=== PATIENT | female | born 2000 | race Caucasian/White ===

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

== ENCOUNTER 2023-07-17 08:37 | Emergency (ER) | payer MEDICAID, SELFPAY ==
[2023-07-17 08:41] VITALS: BP 123/85; PULSE 108; RESP 18; TEMP 37.1; O2SAT 100; BMI 26.5
[2023-07-17 09:07] LABS: Basophils % 0.2 %; Eosinophils # 0.3 10^3/uL (0.0-0.8); Eosinophils % 3.5 %; Hematocrit 44.3 % (36-47); Lymphocytes # 2.2 10^3/uL (0.8-4.8); Lymphocytes % 23.6 %; Mean Corpuscular HGB Conc 33.4 g/dL (30-55); Mean Corpuscular Hemoglobin 28.7 pg (27-33); Mean Platelet Volume 10.2 fL (7.4-10.4); Monocytes # 0.4 10^3/uL (0.2-0.9); Monocytes % 4.7 %; Neutrophils # 6.18 10^3/uL (1.8-7.7); Neutrophils % 67.7 %; Nucleated Red Blood Cells % 0 %; Platelet Count 368 10^3/cmm (157-399); Red Blood Count 5.15 10^6/uL (3.85-5.65); Red Cell Distribution Width 13.6 % (12.1-15.1); White Blood Count 9.14 10^3/uL (3.29-11.43)
[2023-07-17 09:08] VITALS: RESP 18
[2023-07-17] MEDS: sodium chloride 0.9% 1,000 ML 999 ML IV (09:08)
[2023-07-17 09:29] LABS: Alanine Aminotransferase 16 U/L (0-33); Albumin Level 4.3 g/dL (3.5-5.2); Alkaline Phosphatase 78 U/L (35-105); Anion Gap 18.5 (5-19); Aspartate Amino Transferase 13 U/L (0-32); Blood Urea Nitrogen 7 mg/dL (6-20); Calcium 9.6 mg/dL (8.5-10.5); Carbon Dioxide 22 mmol/L (22-29); Chloride 103 mmol/L (98-107); Creatinine Clr Calc Pharmacy 103.0037; Glomerular Filtration Rate 90.5 mL/min (90-130); Glucose 111 mg/dL (65-115); Osmolality Calculated 289 mOsm/kg (285-295); Potassium 3.5 mmol/L (3.5-5.1); Sodium 140 mmol/L (136-145); Total Bilirubin 0.4 mg/dL (0.15-1.2); Total Protein 8.3 g/dL (6.6-8.7)
--- NOTE | 2023-07-17 09:31 | ED_ITS ---
HPI - Nausea/Vomiting/Diarrhea 2 General: Chief complaint: Nausea/Vomiting/Diarrhea Stated complaint: diarrhea for 4 weeks, fever, n/v Time Seen by Provider: 07/17/23 08:54 Source: patient Mode of arrival: ambulatory History of Present Illness: 23-year-old female presents emergency ro om complaining of 3 weeks of diarrhea. Beginning of this month she was on a course of oral antibiotics for UTI she also had a lot of diarrhea at this time. She mentioned that she had some rectal prolapse she seen her primary care doctor they are able to reduce. She feels like she is continue to have excessive diarrhea. Reviewing her chart it looks like she was on Bactrim DS for her bladder infection. MD elicited complaint: nausea, vomiting and diarrhea Onset (ago): week(s) (4) Associated symtoms: Denies chest pain or dysuria Review of Systems 2 Const: Denies: fever(s) or chills Card: Denies: chest pain Resp: Denies: dyspnea GI: Denies: abdominal pain : Denies: dysuria, urinary frequency or urinary urgency Musc: Denies: neck pain or back pain Skin/Breast: Denies: rash PFSH ED 2 PFSH: Medical History Abscess of left breast associated with No pertinent past medical history Denies diabetes, asthma, hypertension, seizures, DVT/PE PCP: SEAN Mora Surgical History No significant past surgical history Family History Father Uvbfppi-Lqdub-Jmrxb disease Grandmother Breast cancer maternal, diagnosed in her 50s Stroke maternal Family/Other Breast cancer maternal aunt, diagnosed in her 30s or 40s Diabetes maternal unlce Heart disease maternal aunt Mother Hypertension Thyroid disease Denies family history of Colon cancer Ovarian cancer Hyperlipidemia Uterine cancer Social History Smoking and tobacco/nicotine status: current every day tobacco/nicotine user Substance/Drug Use: current Physical Exam 2 Const: GENERAL APPEARANCE: cooperative ORIENTATION/CONSCIOUSNESS: Yes awake, Yes oriented to person, Yes oriented to place and Yes oriented to time HENMT: COMMON NORMALS: normocephalic, atraumatic and hearing grossly normal bilaterally HEAD & SCALP: normocephalic and atraumatic Resp: COMMON NORMALS: normal respiratory effort, No retractions, No use of accessory muscles and clear to auscultation bilaterally AUSCULTATION: clear to auscultation bilaterally Cardio: COMMON NORMALS: regular rate, regular rhythm and No murmurs present (Cardio) RATE: regular rate RHYTHM: regular rhythm GI: COMMON NORMALS: No hepatosplenomegaly present AUSCULTATION: Yes normoactive bowel sounds PALPATION: Yes Tenderness to palpation present (GI) (Generalized nonspecific), No Guarding due to palpation present (GI) and Yes No hepatosplenomegaly present Extremity: COMMON NORMALS: normal to inspection, capillary refill normal, no clubbing, cyanosis or edema, no calf tenderness and no pedal edema Neuro: SENSORIUM/ORIENTATION: Yes oriented to person, Yes oriented to place and Yes oriented to time Skin: COMMON NORMALS: no rashes or lesions noted GENERAL SKIN EXAM: no rashes or lesions noted Course 2 Vital Signs: Vital signs: Vital Signs Temperature 98.8 F 07/17/23 08:41 Pulse Rate 85 07/17/23 10:20 Respiratory Rate 18 07/17/23 09:08 Blood Pressure 130/97 07/17/23 10:45 Pulse Oximetry 97 07/17/23 10:20 Oxygen Delivery Me thod Room Air 07/17/23 08:41 MDM - Nausea/Vomiting/Diarrhea Medical Decision Making CT shows colitis. Discharge home liquid diet antiemetics Cipro and Flagyl. She also describes having has episodes of rectal prolapse is not prolapsing now. Recommend she follow-up with her primary care doctor for consideration of further evaluation including possible endoscopy referral to GI or colorectal surgery regarding the prolapse Medical Records I reviewed the patient's medical records. Lab Data I reviewed the patient's lab results. 07/17/23 09:00 07/17/23 09:00 Radiology Impressions Abdomen/Pelvis CT 07/17/23 09:38 IMPRESSION: 1. No hydronephrosis in either kidney. No obstructing renal or ureteral calculi. 2. Mild induration about the transverse colon and proximal descending LEFT colon can be seen with mild infectious or inflammatory colitis. Normal sigmoid colon. 3. Prominent lymph nodes in the central mesentery and RIGHT lower quadrant likely reactive and can be seen with mesenteric adenitis. 4. Normal appendix. No evidence of acute appendicitis. 5. Vaginal ring at the cervix. 6. No other acute findings. Notified Brandyn Hussein DO at 07/17/2023 10:23 AM. Laboratory Results WBC 9.14 10^3/uL (3.29-11.43) 07/17/23 09:00 RBC 5.15 10^6/uL (3.85-5.65) 07/17/23 09:00 Hgb 14.80 g/dL (11.27-16.99) 07/17/23 09:00 Hct 44.3 % (36-47) 07/17/23 09:00 MCV 86.0 fl (85-98) 07/17/23 09:00 MCH 28.7 pg (27-33) 07/17/23 09:00 MCHC 33.4 g/dL (30-55) 07/17/23 09:00 RDW 13.6 % (12.1-15.1) 07/17/23 09:00 Plt Count 368 10^3/cmm (157-399) 07/17/23 09:00 MPV 10.2 fL (7.4-10.4) 07/17/23 09:00 Neut % (Auto) 67.7 % 07/17/23 09:00 Lymph % (Auto) 23.6 % 07/17/23 09:00 [place] % (Auto) 4.7 % 07/17/23 09:00 Eos % (Auto) 3.5 % 07/17/23 09:00 Baso % (Auto) 0.2 % 07/17/23 09:00 Neut # (Auto) 6.18 10^3/uL (1.8-7.7) 07/17/23 09:00 Lymph # (Auto) 2.2 10^3/uL (0.8-4.8) 07/17/23 09:00 [place] # (Auto) 0.4 10^3/uL (0.2-0.9) 07/17/23 09:00 Eos # (Auto) 0.3 10^3/uL (0.0-0.8) 07/17/23 09:00 Baso # (Auto) 0.0 10^3/uL (0.0-0.1) 07/17/23 09:00 Nucleated RBC % (auto) 0 % 07/17/23 09:00 Nucleated RBCs # 0.0 /100WBC 07/17/23 09:00 Sodium 140 mmol/L (136-145) 07/17/23 09:00 Potassium 3.5 mmol/L (3.5-5.1) 07/17/23 09:00 Chloride 103 mmol/L (98-107) 07/17/23 09:00 Carbon Dioxide 22 mmol/L (22-29) 07/17/23 09:00 Anion Gap 18.5 (5-19) 07/17/23 09:00 BUN 7 mg/dL (6-20) 07/17/23 09:00 Creatinine 0.8 mg/dL (0.5-0.9) 07/17/23 09:00 GFR Calculation 90.5 mL/min (90-130) 07/17/23 09:00 Glucose 111 mg/dL (65-115) 07/17/23 09:00 Calculated Osmolality 289 mOsm/kg (285-295) 07/17/23 09:00 Lactic Acid 1.2 mmol/L (0.5-2.2) 07/17/23 09:00 Calcium 9.6 mg/dL (8.5-10.5) 07/17/23 09:00 Total Bilirubin 0.4 mg/dL (0.15-1.2) 07/17/23 09:00 AST 13 U/L (0-32) 07/17/23 09:00 ALT 16 U/L (0-33) 07/17/23 09:00 Alkaline Phosphatase 78 U/L (35-105) 07/17/23 09:00 Total Protein 8.3 g/dL (6.6-8.7) 07/17/23 09:00 Albumin 4.3 g/dL (3.5-5.2) 07/17/23 09:00 Globulin 4.0 g/dL (1.3-4.6) 07/17/23 09:00 Lipase 29 U/L (13-60) 07/17/23 09:00 HCG, Qual Negative (Negative) 07/17/23 09:00 Urine Color Light yellow (Yellow) 07/17/23 10:15 Urine Appearance Clear (CLEAR) 07/17/23 10:15 Urine pH 6 (5-7) 07/17/23 10:15 Ur Specific [place] 1.005 (1.005-1.030) 07/17/23 10:15 Urine Protein Neg (Negative) 07/17/23 10:15 Urine Glucose (UA) Norm (Normal) 07/17/23 10:15 Urine Ketones 1+ (Negative) H 07/17/23 10:15 Urine Blood Neg (Negative) 07/17/23 10:15 Urine Nitrate Negative (Negative) 07/17/23 10:15 Urine Bilirubin Neg (Negative) 07/17/23 10:15 Urine Urobilinogen Norm mg/dL (Negative) 07/17/23 10:15 Ur Leukocyte Esterase Negative (Negative) 07/17/23 10:15 All radiology interpretation(s) finalized by discharge Discharge Plan Discharge Patient Disposition: Home Clinical Impression: Colitis, Rectal prolapse Condition: Stable Prescriptions: New Cipro 500 mg tablet 500 mg PO BID Qty: 14 0RF metronidazole 500 mg tablet 500 mg PO BID 7 Days Qty: 14 0RF promethazine 25 mg tablet 25 mg PO Q6H PRN (Reason: nausea and vomiting) Qty: 20 0RF No Action EluRyng 0.12-0.015 mg/24 hr Ring 1 vag ring VAGINAL Q23D Discharge Orders: Discharge ED (Routine); Ordered 07/17/23 Ordered By: Brandyn Hussein Referrals: Micaela Downs PA [Primary Care Provider] - Discharge Diet: Full LIquid Discharge Activity: Increase activity as tolerated Patient Instructions: Colitis (ED), Opioid Safety, Pain Management Activity Restrictions/Additional Instructions: Thank you for choosing [facility] for your healthcare needs today. Please realize this is an emergency room and that we are providing you with a medical screening exam and this may not be complete and all inclusive of all the testing and or work up that you may need to determine your ailment or severity of your illness. It is very important that you follow up as instructed or that you return to the Emergency Department should you have concerns or if your condition changes or worsens in any way. Follow-up with your primary care doctor within the next 10 to 14 days. Recommend you stay on a full liquid diet for the next few days. You should take some simple carbohydrates such as bread or crackers etc. with the oral antibiotics. In the next few weeks you should follow-up with your primary care doctor regarding the episodes of rectal prolapse you had as well as this episode of colitis for consideration of referral. 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
[2023-07-17 09:32] LABS: HCG, Serum Qual Negative (Negative)
--- NOTE | 2023-07-17 09:38 | CT_ITS ---
WS: [id number] CT ABDOMEN PELVIS TECHNIQUE: Noncontrast CT of the abdomen and pelvis with coronal and sagittal reformatted images. CLINICAL INFORMATION: Abdominal pain COMPARISON: CT 08/13/2020 DLP: 421.[address] scans at [facility] use at least one of these dose optimization techniques: automated e xposure control; mA and/or kV adjustment per patient size (includes targeted exams where dose is matc hed to clinical indication); or iterative reconstruction. FINDINGS: Adrenal glands are normal. No hydronephrosis in either kidney. No obstructing renal or ureteral calcu li. No inflammatory stranding about either kidney. Mild induration and thickening involving the mid to distal transverse colon and proximal descending L EFT colon suspicious for mild infectious or inflammatory colitis. Normal sigmoid colon. Lung bases are well aerated. Noncontrast liver and spleen are normal. Normal GE junction. Normal nonc ontrast gallbladder. Noncontrast pancreas is normal. Normal caliber abdominal aorta. Tiny fat-contain ing umbilical hernia. Normal Multi follicular ovaries bilaterally. . Normal appendix in the RIGHT lower quadrant. No eviden ce of acute appendicitis. Normal lumbar spine. Mild lumbar curve. Few prominent lymph nodes in the ce ntral mesentery and RIGHT lower quadrant can be seen with mesenteric adenitis. Vaginal ring CT/[place] abdomen [place] con [id number] IMPRESSION: 1. No hydronephrosis in either kidney. No obstructing renal or ureteral calcul i. 2. Mild induration about the transverse colon and proximal descending LEFT col on can be seen with mild infectious or inflammatory colitis. Normal sigmoid col on. 3. Prominent lymph nodes in the central mesentery and RIGHT lower quadrant lik elsy reactive and can be seen with mesenteric adenitis. 4. Normal appendix. No evidence of acute appendicitis. 5. Vaginal ring at the cervix. 6. No other acute findings. Notified Brandyn Hussein DO at 07/17/2023 10:23 AM.
[2023-07-17 09:54] LABS: Lipase 29 U/L (13-60)
[2023-07-17 09:56] LABS: Lactic Sepsis W/Reflex 1.2 mmol/L (0.5-2.2)
[2023-07-17 10:20] VITALS: PULSE 85; O2SAT 97
[2023-07-17 10:22] LABS: Add Urine Microscopic? NO; Charge for UA Resulting for Rev
[2023-07-17 10:25] LABS: Bilirubin Urine Neg (Negative); Blood Urine Neg (Negative); Glucose Urine UA Norm (Normal); Ketones Urine 1+ (Negative); Leukocyte Esterase Urine Negative (Negative); Nitrate Urine Negative (Negative); Protein Urine Neg (Negative); Specific Gravity, Urine 1.005 (1.005-1.030); Urine Appearance Clear (CLEAR); Urine Color Light yellow (Yellow); Urobilinogen Urine Norm (Negative); pH Urine 6 (5-7)
[2023-07-17 10:45] VITALS: BP 130/97
== END 2023-07-17 12:07 | disposition home or self-care (01) ==
PROVIDERS: Emergency Provider Family Medicine; PCP Physician Assistant
DX: K52.9 Noninfective gastroenteritis and colitis, unspecified (principal); K62.3 Rectal prolapse; F17.200 Nicotine dependence, unspecified, uncomplicated
CPT/HCPCS: 36415; 74176; 80053; 81003; 83605; 83690; 84703; 85025; 87040; 96360; 96361; 99285; J7030

== ENCOUNTER 2023-10-14 17:42 | Emergency (ER) | payer MEDICAID, SELFPAY ==
[2023-10-14 18:17] VITALS: BP 130/86; PULSE 91; RESP 18; TEMP 37.1; O2SAT 99
[2023-10-14 19:02] LABS: Basophils % 0.3 %; Eosinophils # 0.1 10^3/uL (0.0-0.8); Eosinophils % 0.4 %; Hematocrit 47.5 % (36-47); Lymphocytes # 1.9 10^3/uL (0.8-4.8); Lymphocytes % 15.7 %; Mean Corpuscular HGB Conc 33.1 g/dL (30-55); Mean Corpuscular Hemoglobin 28.9 pg (27-33); Mean Corpuscular Volume 87.3 fl (85-98); Mean Platelet Volume 10.7 fL (7.4-10.4); Monocytes # 0.5 10^3/uL (0.2-0.9); Monocytes % 3.8 %; Neutrophils # 9.35 10^3/uL (1.8-7.7); Neutrophils % 79.5 %; Nucleated Red Blood Cells % 0 %; Platelet Count 438 10^3/cmm (157-399); Red Blood Count 5.44 10^6/uL (3.85-5.65); Red Cell Distribution Width 13.1 % (12.1-15.1); White Blood Count 11.78 10^3/uL (3.29-11.43)
[2023-10-14] MEDS: ondansetron 2 mg/ML SDV 2 mL 4 MG IVP (19:05)
[2023-10-14] MEDS: sodium chloride 0.9% 1,000 ML 999 ML IV (19:05)
[2023-10-14 19:08] VITALS: BP 132/84; PULSE 78; RESP 16; O2SAT 100
--- NOTE | 2023-10-14 19:08 | W.ED.BACK ---
HPI - Back Pain/Injury General: Chief Complaint: Back Pain/Injury Stated Complaint: N/V, Low back pain Time Seen by Provider: 10/14/23 18:18 History of Present Illness: 23-year-old female who presents emergency room with low back pain and right flank pain. She has had nausea and vomiting. No fevers. No dysuria. She says she has not been able to have a bowel movement today. She says she had C. difficile a couple of months ago. No chest pain. No shortness of breath. No altered mental status. Related Data Home Medications Medication Instructions Recorded Confirmed etonogestrel 0.12 mg-ethinyl 1 vag ring vaginal Q23D 07/17/23 07/17/23 estradiol 0.015 mg/24 hr vaginal ring (EluRyng) Previous Rx's Medication Instructions Recorded ciprofloxacin HCl 500 mg tablet 500 mg PO BID #14 tabs 07/17/23 (Cipro) promethazine 25 mg tablet 25 mg PO Q6H PRN nausea and 07/17/23 vomiting #20 tabs glycerin (adult) 1 supp MT DAILY PRN constipation 10/14/23 #12 ea magnesium citrate 296 ml PO ONCE #296 mL 10/14/23 ondansetron 8 mg disintegrating 8 mg PO Q6H #14 tabs 10/14/23 tablet polyethylene glycol 3350 17 17 g PO DAILY #510 grams 10/14/23 gram/dose oral powder (Miralax) Allergies Allergy/AdvReac Type Severity Reaction Status Date / Time amoxicillin Allergy Unknown Verified 07/17/23 08:59 Penicillins Allergy Unknown Verified 07/17/23 08:59 Review of Systems Narrative: Constitutional symptoms: Negative except as documented in HPI. Skin symptoms: Negative except as documented in HPI. Eye symptoms: Negative except as documented in HPI. ENMT symptoms: Negative except as documented in HPI. Respiratory symptoms: Negative except as documented in HPI. Cardiovascular symptoms: Negative except as documented in HPI. Gastrointestinal symptoms: Negative except as documented in HPI. Genitourinary symptoms: Negative except as documented in HPI. Musculoskeletal symptoms: Negative except as documented in HPI. Neurologic symptoms: Negative except as documented in HPI. Psychiatric symptoms: Negative except as documented in HPI. Endocrine symptoms: Negative except as documented in HPI. PFSH ED PFSH: Medical History Abscess of left breast associated with No pertinent past medical history Denies diabetes, asthma, hypertension, seizures, DVT/PE PCP: SEAN Mora Surgical History No significant past surgical history Family History Father Agtqwep-Gfodo-Kcbbv disease Grandmother Breast cancer maternal, diagnosed in her 50s Stroke maternal Family/Other Breast cancer maternal aunt, diagnosed in her 30s or 40s Diabetes maternal unlce Heart disease maternal aunt Mother Hypertension Thyroid disease Denies family history of Colon cancer Ovarian cancer Hyperlipidemia Uterine cancer Social History Smoking and tobacco/nicotine status: current every day tobacco/nicotine user Substance/Drug Use: current Physical Exam Narrative: EXAM NARRATIVE: General: Alert, no acute distress. Skin: Warm, dry. Head: Normocephalic, atraumatic. Neck: Supple, trachea midline. Eye: Extraocular movements are intact. Ears, nose, mouth and throat: Tacky oral mucosa Cardiovascular: Regular, Normal peripheral perfusion. Respiratory: Lungs are clear to auscultation, respirations are non-labored, breath sounds are equal, Symmetrical chest wall expansion. Gastrointestinal: Soft, Nontender, Non distended Musculoskeletal: Normal ROM, no deformity. Neurological: Alert and oriented, No focal neurological deficit observed. Psychiatric: Cooperative, appropriate mood & affect. Course Vital Signs: Vital signs: Vital Signs Temperature 98.7 F 10/14/23 18:17 Pulse Rate 80 10/14/23 20:36 Respiratory Rate 16 10/14/23 19:08 Blood Pressure 120/83 10/14/23 20:36 Pulse Oximetry 100 10/14/23 20:36 Oxygen Delivery Me thod Room Air 10/14/23 20:36 MDM - Back Pain/Injury Medical Decision Making Medical decision making: Differential diagnosis including but not limited to and based on the above HPI, review of systems and physical exam: Ureterolithiasis. Urinary tract infection. Appendicitis. Cholecystis. Musculoskeletal / back pain. Pyelonephritis Orders placed to evaluate differential diagnosis based on the above differential, HPI and physical exam Lab Review: Laboratory results were reviewed and interpreted by myself the emergency room physician. Lab work is fairly unremarkable. Mild leukocytosis with white count of 11.8. Hemoglobin is normal at 15. BUN and creatinine are normal at 5 and 0.7. Urinalysis is negative for infection. CT of the abdomen pelvis: No acute findings. Some mild prominent mesenteric lymph nodes which might indicate mesenteric adenitis. Which would further thought that this is likely a viral gastroenteritis of some sort. This was reviewed and interpreted by myself the emergency room physician. I also reviewed the radiology report. I reviewed the patient's medical record. Reexamination: Patient remained stable. No increased work of breathing. No altered mental status. No focal motor deficits. Assessment and plan: Dehydration Acute nausea and vomiting Probable viral gastroenteritis ?IV normal saline bolus, IV Zofran and IV Toradol in the emergency room. - Discharged home - Discussed findings and plan with patient. Answered any questions. - All laboratory values were reviewed and interpreted personally by myself, the ER physician - All imaging was reviewed and interpreted personally by myself, the ER physician. - Evaluation and treatment of this problem were appropriate in the emergency setting Labs 10/14/23 18:42 10/14/23 18:42 Radiology Impressions Abdomen/Pelvis CT 10/14/23 19:49 IMPRESSION: No acute findings within the abdomen or pelvis. Mildly prominent mesenteric lymph nodes. Laboratory Results WBC 11.78 10^3/uL (3.29-11.43) H 10/14/23 18:42 RBC 5.44 10^6/uL (3.85-5.65) 10/14/23 18:42 Hgb 15.70 g/dL (11.27-16.99) 10/14/23 18:42 Hct 47.5 % (36-47) H 10/14/23 18:42 MCV 87.3 fl (85-98) 10/14/23 18:42 MCH 28.9 pg (27-33) 10/14/23 18:42 MCHC 33.1 g/dL (30-55) 10/14/23 18:42 RDW 13.1 % (12.1-15.1) 10/14/23 18:42 Plt Count 438 10^3/cmm (157-399) H 10/14/23 18:42 MPV 10.7 fL (7.4-10.4) H 10/14/23 18:42 Neut % (Auto) 79.5 % 10/14/23 18:42 Lymph % (Auto) 15.7 % 10/14/23 18:42 [place] % (Auto) 3.8 % 10/14/23 18:42 Eos % (Auto) 0.4 % 10/14/23 18:42 Baso % (Auto) 0.3 % 10/14/23 18:42 Neut # (Auto) 9.35 10^3/uL (1.8-7.7) H 10/14/23 18:42 Lymph # (Auto) 1.9 10^3/uL (0.8-4.8) 10/14/23 18:42 [place] # (Auto) 0.5 10^3/uL (0.2-0.9) 10/14/23 18:42 Eos # (Auto) 0.1 10^3/uL (0.0-0.8) 10/14/23 18:42 Baso # (Auto) 0.0 10^3/uL (0.0-0.1) 10/14/23 18:42 Nucleated RBC % (auto) 0 % 10/14/23 18:42 Nucleated RBCs # 0.0 /100WBC 10/14/23 18:42 Sodium 139 mmol/L (136-145) 10/14/23 18:42 Potassium 3.9 mmol/L (3.5-5.1) 10/14/23 18:42 Chloride 101 mmol/L (98-107) 10/14/23 18:42 Carbon Dioxide 20 mmol/L (22-29) L 10/14/23 18:42 Anion Gap 21.9 (5-19) H 10/14/23 18:42 BUN 5 mg/dL (6-20) L 10/14/23 18:42 Creatinine 0.7 mg/dL (0.5-0.9) 10/14/23 18:42 GFR Calculation 105.6 mL/min (90-130) 10/14/23 18:42 Glucose 96 mg/dL (65-115) 10/14/23 18:42 Calculated Osmolality 285 mOsm/kg (285-295) 10/14/23 18:42 Lactic Acid 1.3 mmol/L (0.5-2.2) 10/14/23 18:42 Calcium 10.6 mg/dL (8.5-10.5) H 10/14/23 18:42 Total Bilirubin 0.3 mg/dL (0.15-1.2) 10/14/23 18:42 AST 13 U/L (0-32) 10/14/23 18:42 ALT 10 U/L (0-33) 10/14/23 18:42 Alkaline Phosphatase 87 U/L (35-105) 10/14/23 18:42 C-Reactive Protein 14.0 mg/L (0.0-4.9) H 10/14/23 18:42 Total Protein 8.9 g/dL (6.6-8.7) H 10/14/23 18:42 Albumin 5.1 g/dL (3.5-5.2) 10/14/23 18:42 Globulin 3.8 g/dL (1.3-4.6) 10/14/23 18:42 HCG, Qual Negative (Negative) 10/14/23 18:42 Urine Color Yellow (Yellow) 10/14/23 19:09 Urine Appearance Clear (CLEAR) 10/14/23 19:09 Urine pH 7.0 (5-7) 10/14/23 19:09 Ur Specific [place] 1.005 (1.005-1.030) 10/14/23 19:09 Urine Protein Negative (Negative) 10/14/23 19:09 Urine Glucose (UA) Negative (Normal) 10/14/23 19:09 Urine Ketones Trace (Negative) 10/14/23 19:09 Urine Blood Negative (Negative) 10/14/23 19:09 Urine Nitrate Negative (Negative) 10/14/23 19:09 Urine Bilirubin Negative (Negative) 10/14/23 19:09 Urine Urobilinogen 0.2 mg/dL (Negative) 10/14/23 19:09 Ur Leukocyte Esterase Negative (Negative) 10/14/23 19:09 Urine RBC 0-2 /hpf (0-2) 10/14/23 19:09 Urine WBC 0-5 /hpf (0-5) 10/14/23 19:09 Ur Squamous Epith Cells 0-5 /hpf (0-5) 10/14/23 19:09 Amorphous Sediment Not Reportable 10/14/23 19:09 Urine Bacteria None seen /hpf (NONE) 10/14/23 19:09 Hyaline Casts 0-4 /lpf H 10/14/23 19:09 All radiology interpretation(s) finalized by discharge Discharge Plan Discharge Patient Disposition: Home Clinical Impression: Flank pain, Dehydration Condition: Stable Prescriptions: New ondansetron 8 mg tablet,disintegrating 8 mg PO Q6H Qty: 14 0RF Rx Instructions: Take 1/2-1 tab every 6 hours as needed for nausea and vomiting magnesium citrate Solution 296 ml PO ONCE Qty: 296 0RF Miralax 17 gram/dose powder 17 g PO DAILY Qty: 510 0RF Rx Instructions: Take 1-2 scoops daily for the next 3 months to keep stools soft glycerin (adult) Suppository 1 supp MT DAILY PRN (Reason: constipation) Qty: 12 0RF No Action EluRyng 0.12-0.015 mg/24 hr Ring 1 vag ring VAGINAL Q23D Cipro 500 mg tablet 500 mg PO BID Qty: 14 0RF promethazine 25 mg tablet 25 mg PO Q6H PRN (Reason: nausea and vomiting) Qty: 20 0RF Discharge Orders: Discharge ED (Routine); Ordered 10/14/23 Ordered By: Bridgette Beltran Referrals: Micaela Downs PA [Primary Care Provider] - Discharge Diet: Advance as tolerated Discharge Activity: Increase activity as tolerated Patient Instructions: Acute Nausea and Vomiting (DC) Activity Restrictions/Additional Instructions: Thank you for choosing [facility] for your healthcare needs today. Please realize this is an emergency room and that we are providing you with a medical screening exam and this may not be complete and all inclusive of all the testing and or work up that you may need to determine your ailment or severity of your illness. You have been screened and evaluated and felt safe for discharge. Health conditions do change or evolve sometimes and as such it is important that you follow up with your Primary Doctor to be re checked, 3-5 days is a general good time frame for follow up. You are always welcome to return to the ED for re assessment if your symptoms are worsening or you have new concerns Coding Level of Care Code ED Applied Technologist for Charo Sue
[2023-10-14 19:15] LABS: HCG, Serum Qual Negative (Negative)
[2023-10-14 19:16] LABS: Bilirubin Urine Negative (Negative); Blood Urine Negative (Negative); Glucose Urine UA Negative (Normal); Ketones Urine Trace (Negative); Leukocyte Esterase Urine Negative (Negative); Nitrate Urine Negative (Negative); Protein Urine Negative (Negative); Specific Gravity, Urine 1.005 (1.005-1.030); Urine Appearance Clear (CLEAR); Urine Color Yellow (Yellow); Urobilinogen Urine 0.2 mg/dL (Negative)
[2023-10-14 19:21] LABS: Bacteria Urine None Seen /hpf; Hyaline Casts Urine 0-4 /lpf; RBC Urine 0-2 /hpf (0-2); Squamous Epithelial Cell Urine 0-5 /hpf (0-5); WBC Urine 0-5 /hpf (0-5)
[2023-10-14 19:24] LABS: Alanine Aminotransferase 10 U/L (0-33); Albumin Level 5.1 g/dL (3.5-5.2); Alkaline Phosphatase 87 U/L (35-105); Aspartate Amino Transferase 13 U/L (0-32); Blood Urea Nitrogen 5 mg/dL (6-20); Calcium 10.6 mg/dL (8.5-10.5); Carbon Dioxide 20 mmol/L (22-29); Chloride 101 mmol/L (98-107); Globulin 3.8 g/dL (1.3-4.6); Glomerular Filtration Rate 105.6 mL/min (90-130); Glucose 96 mg/dL (65-115); Osmolality Calculated 285 mOsm/kg (285-295); Sodium 139 mmol/L (136-145); Total Bilirubin 0.3 mg/dL (0.15-1.2); Total Protein 8.9 g/dL (6.6-8.7)
[2023-10-14 19:26] LABS: Lactic Sepsis W/Reflex 1.3 mmol/L (0.5-2.2)
[2023-10-14 19:38] LABS: Anion Gap 21.9 (5-19); Potassium 3.9 mmol/L (3.5-5.1)
--- NOTE | 2023-10-14 19:49 | CTR_ITS ---
PROCEDURE INFORMATION: Exam: CT Abdomen And Pelvis Without Contrast Exam date and time: 10/14/2023 8:23 PM Age: 23 years old Clinical indication: Abdominal pain; Flank; Left; Additional info: Flank pain TECHNIQUE: Imaging protocol: Computed tomography of the abdomen and pelvis without contrast. Radiation optimization: All CT scans at this facility use at least one of these dose optimization techniques: automated exposure control; mA and/or kV adjustment per patient size (includes targeted exams where dose is matched to clinical indication); or iterative reconstruction. COMPARISON: CT abdomen pelvis con [id number] 07/17/2023 9:44 AM RADIATION DOSE METRICS: Total DLP (mGy-cm): 379 FINDINGS: Liver: Normal. No mass. Gallbladder and biliary ducts: Normal. No calcified stones. No ductal dilation. Pancreas: Normal. No ductal dilation. Spleen: Normal. No splenomegaly. Adrenal glands: Normal. No mass. Kidneys and ureters: Normal. No hydronephrosis. Stomach and bowel: Unremarkable. No obstruction. No mucosal thickening. Appendix: No evidence of appendicitis. Intraperitoneal space: Unremarkable. No free air. No significant fluid collection. Vasculature: Unremarkable. No abdominal aortic aneurysm. Lymph nodes: Mildly prominent mesenteric lymph nodes. Urinary bladder: Unremarkable as visualized. Reproductive: The uterus is unremarkable. Pessary in place. Bones/joints: Unremarkable. No acute fracture. Soft tissues: Unremarkable. CT/CT abdomen pelvis [facility] [id number] IMPRESSION: No acute findings within the abdomen or pelvis. Mildly prominent mesenteric lymph nodes.
[2023-10-14 20:00] VITALS: BP 127/75; PULSE 89; O2SAT 100
[2023-10-14] MEDS: ketorolac 30 mg/mL INJ IVP (20:34)
[2023-10-14 20:36] VITALS: BP 120/83; PULSE 80; O2SAT 100
[2023-10-14] MEDS: ondansetron 4 MG Tablet 8 MG PO (21:33)
[2023-10-14 21:35] VITALS: BP 122/72; PULSE 87; O2SAT 98
== END 2023-10-14 21:37 | disposition home or self-care (01) ==
PROVIDERS: Emergency Provider Emergency Medicine; PCP Physician Assistant
DX: R10.9 Unspecified abdominal pain (principal); E86.0 Dehydration; Z72.0 Tobacco use
CPT/HCPCS: 74176; 80053; 81001; 83605; 84703; 85025; 86140; 96361; 96374; 96375; 99285; J1885; J2405; J7030; Q0162

== ENCOUNTER 2024-03-25 15:01 | Outpatient (CLI) | payer MEDICAID, SELFPAY ==
--- NOTE | 2024-03-25 15:03 | MR_ITS ---
WS: [id number] MRI RIGHT KNEE NONCONTRAST TECHNIQUE: Axial PD, coronal PD fat sat, coronal PD, sagittal PD, and sagittal PD fat-sat images obta ined. CLINICAL INFORMATION: RIGHT KNEE DERANGEMENT COMPARISON: None. FINDINGS: Distal quadriceps and patella tendons are intact. Normal ACL and PCL. Medial and lateral meniscus are normal in appearance. No acute appearing meniscal tears. Normal femoral condyles and tibial plateau. Normal bone marrow signal. Medial and lateral collateral ligaments appear intact. Fibula head is normal. Normal patella. Medial and lateral patellar retinaculum appear intact. Normal popliteal fossa. Normal popliteus. Tiny popliteal cyst. No other acute findings. MR/MR knee RT wo con* [id number] IMPRESSION: 1. Normal ACL and PCL. 2. No acute appearing meniscal tears. 3. Normal medial lateral collateral ligaments. 4. No other acute findings. Outbridge grading: grade I: focal areas of hyperintensity with normal contour
== END 2024-03-25 15:02 | disposition home or self-care (01) ==
LOC: RAD 15:02
PROVIDERS: PCP Physician Assistant; Visit Provider Physician Assistant
DX: M23.91 Unspecified internal derangement of right knee (principal)
CPT/HCPCS: 73721